=== PATIENT | female | born 1945 | race Caucasian/White ===

== ENCOUNTER 2019-12-20 10:56 | Emergency (ER) | payer MEDICARE, BC ==
[2019-12-20] MEDS ORDERED: Meclizine 25 MG Tab PO ONE (11:26)
[2019-12-20] MEDS ORDERED: Scopolamine 1.5 MG Transdermal Patch TRDERM PRN (11:35)
--- NOTE | 2019-12-20 12:49 | EDM.PDOC ---
ED HPI GENERAL MEDICAL PROBLEM - General Chief Complaint: General Stated Complaint: DIZZINES Time Seen by Provider: 12/20/19 11:00 Source of Information: Reports: Patient History Limitations: Reports: No Limitations - History of Present Illness INITIAL COMMENTS - FREE TEXT/NARRATIVE: Patient presented to the ED because of vertigo on and off since Thursday. It's worse with turning her head sideways. There is tinniyus associated with the vertigo. She denies having any n/v, fever, cough or cold symptoms. 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 Social & Family History - Tobacco Use Smoking Status *Q: Former Smoker Used Tobacco, but Quit: No - Caffeine Use Caffeine Use: Reports: Coffee - Alcohol Use Days Per Week of Alcohol Use: 1 Number of Drinks Per Day: 1 Total Drinks Per Week: 1 - Recreational Drug Use Recreational Drug Use: No ED ROS GENERAL - Review of Systems Review Of Systems: See Below Constitutional: Reports: No Symptoms HEENT: Reports: No Symptoms Respiratory: Reports: No Symptoms Cardiovascular: Reports: No Symptoms Endocrine: Reports: No Symptoms GI/Abdominal: Reports: No Symptoms : Reports: No Symptoms Musculoskeletal: Reports: No Symptoms Skin: Reports: No Symptoms Neurological: Reports: Dizziness ED EXAM, GENERAL - Physical Exam Exam: See Below Exam Limited By: No Limitations General Appearance: Alert, No Apparent Distress Eye Exam: Bilateral Eye: PERRL Ears: Normal External Exam, Normal Canal Nose: Normal Inspection, Normal Mucosa Throat/Mouth: Normal Inspection, Normal Lips, Normal Teeth Head: Atraumatic, Normocephalic Neck: Normal Inspection, Supple, Non-Tender, Full Range of Motion Respiratory/Chest: No Respiratory Distress, Lungs Clear, Normal Breath Sounds Cardiovascular: Normal Peripheral Pulses, Regular Rate, Rhythm, No Edema GI/Abdominal: Normal Bowel Sounds, Soft, Non-Tender, No Organomegaly Back Exam: Normal Inspection, Full Range of Motion Extremities: Normal Inspection, Normal Range of Motion, Non-Tender Neurological: Alert, CN II-XII Intact, Normal Cognition, Normal Reflexes, No Motor/Sensory Deficits Course - Vital Signs Text/Narrative:: labs reviewed with the patient and verbalized full understanding scopolamine patch Mecizine 25 mg po x1 Last Recorded V/S: Last Vital Signs Temp 36.5 C 12/20/19 10:56 Pulse 76 12/20/19 10:56 Resp 16 12/20/19 10:56 BP 127/76 12/20/19 10:56 Pulse Ox 98 12/20/19 10:56 - Orders/Labs/Meds Orders: Active Orders 24 hr Category Date Time Status EKG Documentation Completion [RC] ASDIRECTED Care 12/20/19 11:26 Active Scopolamine [Transderm-Scop] Med 12/20/19 11:35 Active 1.5 mg TRDERM Q72H PRN EKG 12 Lead [EK] Routine Ther 12/20/19 11:26 Ordered Medication Orders Scopolamine (Transderm-Scop) 1.5 mg TRDERM Q72H PRN PRN Reason: Dizziness Last Admin: 12/20/19 11:43 Dose: 1.5 mg Documented by: KEMAL Labs: Laboratory Tests 12/20/19 Range/Units 11:45 Sodium 139 (135-145) mmol/L Potassium 4.0 (3.5-5.3) mmol/L Chloride 103 (100-110) mmol/L Carbon Dioxide 30 (21-32) mmol/L BUN 11 (7-18) mg/dL Creatinine 0.6 (0.55-1.02) mg/dL Est Cr Clr Drug Dosing TNP Estimated GFR (MDRD) > 60 (>60) BUN/Creatinine Ratio 18.3 (9-20) Glucose 160 H (80-116) mg/dL Calcium 9.5 (8.6-10.2) mg/dL Meds: Medications Generic Name Dose Route Start Last Admin Trade Name Freq PRN Reason Stop Dose Admin Scopolamine 1.5 mg 12/20/19 11:35 12/20/19 11:43 Transderm-Scop TRDERM 1.5 mg Q72H PRN Administration Dizziness Discontinued Medications Generic Name Dose Route Start Last Admin Trade Name Freq PRN Reason Stop Dose Admin Meclizine HCl 25 mg 12/20/19 11:26 12/20/19 11:46 Antivert PO 12/20/19 11:27 25 mg ONETIME ONE Administration Departure - Departure Time of Disposition: 12:50 Disposition: Home, Self-Care 01 Condition: Good Clinical Impression: BPV (benign positional vertigo) - Discharge Information Prescriptions: Meclizine [Antivert] 25 mg PO Q6H #30 tab Instructions: Meclizine tablets or capsules, Benign Positional Vertigo Referrals: Carlyn Hannah [facility] GRINDER [Primary Care Provider] - Forms: ED Department Discharge Additional Instructions: please read discharge instructions on benign positional vertigo Increase oral fluids Rest for the Day Keep the scopolamine patch for 3 days Meclizine 25 mg every 6 hours for 3 days then take it as needed Follow up if symptoms persist Sepsis Event Note (ED) - Evaluation Sepsis Screening Result: No Definite Risk - Focused Exam Vital Signs: Vital Signs Temp Pulse Resp BP Pulse Ox 12/20/19 10:56 36.5 C 76 16 127/76 98 - My Orders Last 24 Hours: My Active Orders 12/20/19 11:26 EKG Documentation Completion [RC] ASDIRECTED EKG 12 Lead [EK] Routine 12/20/19 11:35 Scopolamine [Transderm-Scop] 1.5 mg TRDERM Q72H PRN - Assessment/Plan Last 24 Hours: My Active Orders 12/20/19 11:26 EKG Documentation Completion [RC] ASDIRECTED EKG 12 Lead [EK] Routine 12/20/19 11:35 Scopolamine [Transderm-Scop] 1.5 mg TRDERM Q72H PRN
== END 2019-12-20 13:00 | disposition home or self-care (01) ==
LOC: FB.ED 10:56
DX: H81.10 Benign paroxysmal vertigo, unspecified ear (principal); Z87.891 Personal history of nicotine dependence; Z88.5 Allergy status to narcotic agent; Z90.710 Acquired absence of both cervix and uterus
CPT/HCPCS: 36415; 80048; 93005; 99284; A9270; 99283

== ENCOUNTER 2023-03-25 10:27 | Emergency (ER) | payer MEDICARE, OTHER | END 2023-03-25 12:58 | disposition home or self-care (01) | LOC: FB.ED 10:27 | DX: S06.0X0A Concussion without loss of consciousness, initial encounter (principal); S00.03XA Contusion of scalp, initial encounter; S16.1XXA Strain of muscle, fascia and tendon at neck level, initial encounter; Z88.5 Allergy status to narcotic agent; Z90.49 Acquired absence of other specified parts of digestive tract; Z90.710 Acquired absence of both cervix and uterus; W22.8XXA Striking against or struck by other objects, initial encounter | CPT/HCPCS: 70450; 72125; 99284 ==